=== PATIENT | male | born 1985 | race Caucasian/White ===

== ENCOUNTER 2023-07-13 15:45 | Emergency (ER) | payer OTHER, SELFPAY ==
[2023-07-13 15:57] VITALS: BP 144/82; PULSE 87; RESP 18; TEMP 36.6; O2SAT 100
--- NOTE | 2023-07-13 16:23 | ED.GENADULT ---
HPI - General Adult General Chief complaint: Unspecified Stated complaint: bat exposure Time Seen by Provider: 07/13/23 16:02 Source: patient Mode of arrival: ambulatory Limitations: no limitations History of Present Illness HPI narrative: This is a 37 year old male that presents to the ER for possible rabies exposure. Reports he was on a camping trip last night. He felt something on his face. He woke up and there was a bat flying around the room. Reports they were able to capture it and took it to the vet there. Reports there have been other bats in that area that have tested positive for rabies. He does not note any actual bites. He reports the vet is testing the bat that he had contact with. Related Data Allergies Allergy/AdvReac Type Severity Reaction Status Date / Time No Known Allergies Allergy Verified 07/13/23 16:04 Review of Systems Review of Systems: CONSTITUTIONAL: Denies fever SKIN: Denies wounds All systems reviewed & are unremarkable except as noted in HPI and below PMFSH Past Medical History Medical History (Updated 07/13/23 @ 16:43 by Diana Gracia PA-C) History of gastroesophageal reflux (GERD) Social History Social History (Updated 07/13/23 @ 16:36 by Diana Gracia PA-C) Smoking status: Never smoker Exam Narrative: GENERAL: Well-appearing, well-nourished, and in no acute distress. HEAD: Normocephalic, atraumatic. EYES: EOMI. CHEST: No respiratory distress. HEART: Regular rate EXTREMITIES: Normal range of motion. No edema. SKIN: Warm, dry, no rash. NEURO: No focal deficits. Alert and oriented x3. PSYCH: Normal mood and affect Course Course Emergency Course: Patient agrees with plan of care Consultations Consultation #1: Spoke with Viviana Harris about patient. He will be started on vaccine series and given Immune globulin. She will call the patient to set up further vaccine series. Will give a copy to her of patient's prescription Date: 07/13/23 Time: 16:39 Vital Signs Vital signs: Vital Signs Temperature 97.9 F 07/13/23 15:57 Pulse Rate 87 07/13/23 15:57 Respiratory Rate 18 07/13/23 15:57 Blood Pressure 144/82 H 07/13/23 15:57 Pulse Oximetry 100 07/13/23 15:57 Oxygen Delivery Room Air 07/13/23 15:57 Temperature 97.9 F 07/13/23 15:57 Pulse Rate 87 07/13/23 15:57 Respiratory Rate 18 07/13/23 15:57 Blood Pressure 144/82 H 07/13/23 15:57 Pulse Oximetry 100 07/13/23 15:57 Oxygen Delivery Room Air 07/13/23 15:57 Medical Decision Making MDM Narrative Medical decision making narrative: Patient presents to the emergency department for possible rabies exposure. Reports a bat flying around in his room last night. He does not note an actual bite, but thought he felt something on his face. The bat has been captured and is getting tested for rabies. Spoke with Viviana Harris about patient. He will be started on vaccine series and given Immune globulin. She will call the patient to set up further vaccine series. Will give a copy to her of patient's prescription. Vital Signs Vital Signs: Vital Signs Temperature 97.9 F 07/13/23 15:57 Pulse Rate 87 07/13/23 15:57 Respiratory Rate 18 07/13/23 15:57 Blood Pressure 144/82 H 07/13/23 15:57 Pulse Oximetry 100 07/13/23 15:57 Oxygen Delivery Room Air 07/13/23 15:57 Temperature 97.9 F 07/13/23 15:57 Pulse Rate 87 07/13/23 15:57 Respiratory Rate 18 07/13/23 15:57 Blood Pressure 144/82 H 07/13/23 15:57 Pulse Oximetry 100 07/13/23 15:57 Oxygen Delivery Room Air 07/13/23 15:57 Critical Care Time Critical Care Time Critical Care Time: No Discharge Plan Discharge Clinical Impression: Contact with and (suspected) exposure to rabies Patient Disposition: Home, Self-Care Condition: Stable Instructions: Rabies Vaccine (By injection), Rabies Immune Globulin (By injection) Additional Instructions: You will be called on Saturday by
[2023-07-13] MEDS: RABIES VACCINE (RABAVERT) 2.5 UNITS VIAL IM (17:10)
== END 2023-07-13 17:26 | disposition home or self-care (01) ==
PROVIDERS: Emergency Provider Physician Assistant
DX: Z20.3 Contact with and (suspected) exposure to rabies (principal); Z23 Encounter for immunization; K21.9 Gastro-esophageal reflux disease without esophagitis
CPT/HCPCS: 90375; 90471; 90675; 96372; 99283